=== PATIENT | female | born 2000 | race Caucasian/White ===

== ENCOUNTER 2020-09-17 09:34 | Emergency (ER) | payer SELFPAY ==
[~2020-09-17] VITALS: Ht 157.5 cm; Wt 61.4 kg
[2020-09-17] MEDS ORDERED: HYDR1TAB33 PO (09:49)
[2020-09-17] MEDS ORDERED: BUSP10TA PO (09:49)
[2020-09-17] MEDS ORDERED: MACR100C43 PO (12:20)
[2020-09-17 12:25] VITALS: BP 108/69
[2020-09-17 13:02] LABS: CHLAMYDIA DNA AMPLIFICATION NEGATIVE (NEGATIVE); GC DNA AMPLIFICATION NEGATIVE (NEGATIVE)
== END 2020-09-17 12:26 | disposition home or self-care (01) ==
LOC: M ED 09:34
DX: N39.0 Urinary tract infection, site not specified (principal); F12.10 Cannabis abuse, uncomplicated; F17.200 Nicotine dependence, unspecified, uncomplicated

== ENCOUNTER 2020-10-08 21:13 | Emergency (ER) | payer SELFPAY ==
[~2020-10-08] VITALS: Ht 157.5 cm; Wt 64.1 kg
[~2020-10-08 21:13] MED LIST: BUSP10TA PO; HYDR1TAB33 PO; MACR100C43 PO
[2020-10-08 21:14] VITALS: BP 128/72
[2020-10-08] MEDS ORDERED: LIDOCAINE 1% MDV 20ML VIAL As Ordered ONE (21:35)
[2020-10-08] MEDS ORDERED: LIDOCAINE 1% MDV 20ML VIAL SC ONE (21:50)
== END 2020-10-08 22:00 | disposition home or self-care (01) ==
LOC: M ED 21:13
DX: S61.210A Laceration without foreign body of right index finger without damage to nail, initial encounter (principal); W26.0XXA Contact with knife, initial encounter; Y92.000 Kitchen of unspecified non-institutional (private) residence as the place of occurrence of the external cause; Y93.G3 Activity, cooking and baking; Y99.9 Unspecified external cause status